=== PATIENT | female | born 1930 | race Caucasian/White ===

== ENCOUNTER 2018-03-19 18:24 | Emergency (ER) | payer MEDICARE ==
[2018-03-19 19:26] LABS: ABS Basophils 0 10^3/ul (0-0.2); ABS Eosinophils 0.1 10^3/ul (0-0.6); ABS Lymphocytes 1.3 10^3/ul (1.0-4.8); ABS Monocytes 1.1 10^3/ul (0-0.8); ABS Neutrophils 3.4 10^3/ul (1.5-7.7); ABS Nucleated RBC 0 10^3/ul; Eosinophil % 2.4 % (0-6); Hematocrit 40 % (35-47); Mean Corpuscular HGB Conc 35 g/dl (31-36); Mean Corpuscular Hemoglobin 33 pg (27-31); Mean Corpuscular Volume 95 fL (80-97); Mean Platelet Volume 8.3 um3 (7.4-10.4); Nucleated Red Blood Cells % 0.1; Platelet Count 273 10^3/ul (150-450); Red Blood Count 4.23 10^6/ul (4.00-5.40); Red Cell Distribution Width 12 % (10.5-15); White Blood Count 5.9 10^3/ul (3.5-10.8)
--- NOTE | 2018-03-19 19:36 | ED ---
HPI Chest Pain - HPI Summary HPI Summary: This is scribherbert Burdick documenting for attending Sandro Owens MD. Patient is a 86 y/o F w/ c/o retrospinal chest pain and dysuria. Chest pain is reported to have onset yesterday in the afternoon. Patient also notes dysuria onsetting six days ago. She was diagnosed with C-diff at this time (six days ago ) as well. In the room, chest pain is rated 8/10. The patient states chest pain "feels like someone hit me" but not reported to radiate. Deep breaths aggravate pain and nothing else is noted to aggravate/alleviate Sx on triage. N/V, fever are denied. Diarrhea Sx are reported to be improving since C-diff Dx. Home medications and allergies are reviewed. - History of Current Complaint Chief Complaint: EDChestWallPain Time Seen by Provider: 03/19/18 19:09 Hx Obtained From: Patient Onset/Duration: Started Days Ago - chest pain onset yesterday, dysuria onset 6 days ago Timing: Constant Current Severity: Severe - rated 8/10 in the room Pain Intensity: 8 Pain Scale Used: 0-10 Numeric - 8/10 Chest Pain Location: Discrete at: - retrosternal area Chest Pain Radiates: No Character: Other: - "feels like someone hit me" Aggravating Factor(s): Deep Breaths Alleviating Factor(s): Nothing Associated Signs and Symptoms: Positive: Chest Pain, Other: - POSITIVE: dysuria ; diarrhea (Sx are getting better). Negative: Fever, Nausea, Vomiting - Allergy/Home Medications Allergies/Adverse Reactions: Allergies Allergy/AdvReac Type Severity Reaction Status Date / Time aspirin Allergy Bleeding Verified 03/19/18 18:48 codeine Allergy Unknown Verified 03/19/18 18:48 Reaction Details Home Medications: Home Medications metroNIDAZOLE [Metronidazole] 500 mg PO Q8H 03/19/18 [History Confirmed 03/19/18 ] PMH/Surg Hx/FS Hx/Imm Hx Cardiovascular History: Reports: Hx Hypertension Sensory History: Denies: Hx Legally Blind - Surgical History Surgery Procedure, Year, and Place: Hysterectomy. R wrist surgery. rotor cuff surger Infectious Disease History: No Infectious Disease History: Denies: History Other Infectious Disease, Traveled Outside the [place] in Last 30 Days - Family History Known Family History: Negative: Blood Disorder - Social History Alcohol Use: Rare Substance Use Type: Reports: None Smoking Status (MU): Former Smoker Review of Systems Negative: Fever Positive: Chest Pain Positive: Diarrhea - reported to be getting better since last week . Negative: Vomiting, Nausea Positive: dysuria All Other Systems Reviewed And Are Negative: Yes Physical Exam - Summary Physical Exam Summary: VITAL SIGNS: Reviewed. GENERAL: Patient is a well-developed and nourished female who is lying comfortable in the stretcher. Patient is not in any acute respiratory distress. HEAD AND FACE: No signs of trauma. No ecchymosis, hematomas or skull depressions. No sinus tenderness. EYES: PERRLA, EOMI x 2, No injected conjunctiva, no nystagmus. EARS: Hearing grossly intact. Ear canals and tympanic membranes are within normal limits. MOUTH: Oropharynx within normal limits. NECK: Supple, trachea is midline, no adenopathy, no JVD, no carotid bruit, no c- spine tenderness, neck with full ROM. CHEST: Symmetric, no tenderness at palpation; retrosternal chest pain, reproducible at palpation. LUNGS: Clear to auscultation bilaterally. No wheezing or crackles. CVS: Regular rate and rhythm, S1 and S2 present, no murmurs or gallops appreciated. ABDOMEN: Soft, non-tender. No signs of distention. No rebound no guarding, and no masses palpated. Bowel sounds are normal. EXTREMITIES: FROM in all major joints, no edema, no cyanosis or clubbing. NEURO: Alert and oriented x 3. No acute neurological deficits. Speech is normal and follows commands. SKIN: Dry and warm Triage Information Reviewed: Yes Vital Signs On Initial Exam: Initial Vitals Temp Pulse Resp BP Pulse Ox 97.9 F 81 16 164/107 98 03/19/18 18:30 03/19/18 18:30 03/19/18 18:30 03/19/18 18:30 03/19/18 18:30 Vital Signs Reviewed: Yes Diagnostics - Vital Signs Vital Signs Temp Pulse Resp BP Pulse Ox 03/19/18 18:51 83 35 155/83 96 03/19/18 18:50 80 29 97 03/19/18 18:30 97.9 F 81 16 164/107 98 - Laboratory Lab Results: Lab Results 03/19/18 Range/Units 19:17 WBC 5.9 (3.5-10.8) 10^3/ul RBC 4.23 (4.00-5.40) 10^6/ul Hgb 14.0 (12.0-16.0) g/dl Hct 40 (35-47) % MCV 95 (80-97) fL MCH 33 H (27-31) pg MCHC 35 (31-36) g/dl RDW 12 (10.5-15) % Plt Count 273 (150-450) 10^3/ul MPV 8.3 (7.4-10.4) um3 Neut % (Auto) 56.5 (38-83) % Lymph % (Auto) 22.0 L (25-47) % [place] % (Auto) 18.5 H (0-7) % Eos % (Auto) 2.4 (0-6) % Baso % (Auto) 0.6 (0-2) % Absolute Neuts (auto) 3.4 (1.5-7.7) 10^3/ul Absolute Lymphs (auto) 1.3 (1.0-4.8) 10^3/ul Absolute Monos (auto) 1.1 H (0-0.8) 10^3/ul Absolute Eos (auto) 0.1 (0-0.6) 10^3/ul Absolute Basos (auto) 0 (0-0.2) 10^3/ul Absolute Nucleated RBC 0 10^3/ul Nucleated RBC % 0.1 Result Diagrams: 03/19/18 19:17 03/19/18 19:17 Lab Statement: Any lab studies that have been ordered have been reviewed, and results considered in the medical decision making process. - Radiology CXR Xray Interpretation: No Acute Changes Radiology Interpretation Completed By: Radiologist - No active cardiopulmonary disease is noted. This report was reviewed by ED physician. - EKG 1940 Cardiac Rate: NL - Rate of 82 BPM EKG Rhythm: Sinus Rhythm ST Segment: Normal - No ST elevation EKG Interpretation: Q wave in 2, 3, aVF Chest Pain Course/Dx - Course Assessment/Plan: Blood test results without any significant abnormality except for sodium 127, glucose 101, magnesium 1.7 for which the patient was given magnesium by mouth. Troponin #1 is 0.00 and troponin #2 is also 0.00. Therefore I have no suspicion for an acute coronary syndrome and since the patient is not tachycardic or hypoxic I have no suspicion for PE. The patient is awaiting for the results of the urinalysis since the patient is complaining of dysuria and urinary frequency. The patient will be signed out to Dr. Hernandez at shift change. He will follow-up the urinalysis results if needed he will place the patient antibiotics. At this point the patient is hemodynamically stable alert and oriented 3. - Chest Pain Differential Diagnosis/HQI/PQRI: Acute RI, ACS, Angina, CHF, Chest Wall, GI Disease, Lower Respiratory Infection - Diagnoses Provider Diagnoses: Atypical chest pain, UTI (urinary tract infection) Discharge - Sign-Out/Discharge Documenting (check all that apply): Sign-Out Patient Signing out patient TO: Dada Hernandez Receiving patient FROM: Sandro Owens - Discharge Plan Condition: Stable Disposition: HOME Prescriptions: Sulfamethox/Trimethoprim DS* [Bactrim DS 800/160 TAB*] 1 tab PO BID #6 tab Patient Education Materials: Chest Pain (ED), Urinary Tract Infection in Women (ED) Referrals: Andrez Cloud MD [Primary Care Provider] - 4 Days (PLEASE F/U IN 3-5 DAYS) Additional Instructions: RETURN TO THE ED FOR CHANGING/RETURNING SYMPTOMS - Billing Disposition and Condition Condition: STABLE Disposition: Home
--- NOTE | 2018-03-19 19:37 | RAD ---
Indication: Chest pain. Single frontal view of the chest performed at 1918 hours was reviewed. Comparison is made with previous exam dated May 25, 2015. No mediastinal shift is noted. Heart is of normal size and configuration. Lung gibson appear clear. IMPRESSION: NO ACTIVE CARDIOPULMONARY DISEASE IS NOTED.
[2018-03-19 19:45] LABS: EGFR Non-African American 80.7 (>60)
[2018-03-19] MEDS ORDERED: Ketorolac INJ* 30 MG/ML 1 ML VIAL IV PUSH ONE (19:58)
[2018-03-19] MEDS ORDERED: Acetaminophen TAB* 325 MG PO ONE (19:58)
[2018-03-19] MEDS ORDERED: NS 0.9% 1000 ML* 1,000 ML IV ONE (21:18)
[2018-03-19] MEDS ORDERED: Magnesium Oxide TAB* 400 MG PO ONE (21:18)
--- NOTE | 2018-03-19 21:31 | ED ---
Progress - Progress Note Progress Note: Pt signed out by Dr. Owens pending 2nd Troponin and UA. - Results/Orders Results/Orders: Repeat Troponin 0.00. UA (+) UTI. Re-Evaluation - Re-Evaluation 1 Re-Evaluation Time: 22:52 Comment: discussed plan to d/c and reviewed test results Course/Dx - Course Course Of Treatment: Bloodwork obtained. Signed out from Dr. Owens. UA (+) UTI. Repeat trop 0.00. Pt will be d/c home with f/u with PCP. - Diagnoses Provider Diagnoses: Atypical chest pain, UTI (urinary tract infection) Discharge - Sign-Out/Discharge Documenting (check all that apply): Patient Departure - Discharge Plan Condition: Stable Disposition: HOME Prescriptions: Sulfamethox/Trimethoprim DS* [Bactrim DS 800/160 TAB*] 1 tab PO BID #6 tab Patient Education Materials: Chest Pain (ED), Urinary Tract Infection in Women (ED) Referrals: Andrez Cloud MD [Primary Care Provider] - 4 Days (PLEASE F/U IN 3-5 DAYS) Additional Instructions: RETURN TO THE ED FOR CHANGING/RETURNING SYMPTOMS - Billing Disposition and Condition Condition: STABLE Disposition: Home
[2018-03-19 22:27] VITALS: BP 105/74
[2018-03-19 22:41] LABS: Urine Appearance Cloudy; Urine Blood 1+ (Negative); Urine Color Yellow; Urine Ketones Negative (Negative); Urine Protein Negative (Negative); Urine Red Blood Cell 2+(6-10/hpf) (Absent); Urine Specific Gravity 1.008 (1.010-1.030); Urine Urobilinogen Negative (Negative); Urine White Blood Cell 3+(>20/hpf) (Absent)
[2018-03-19] MEDS ORDERED: Sulfamethox/Trimethoprim DS 800/160* TAB PO ONE (22:46)
[2018-03-19] MEDS ORDERED: Sulfamethox/Trimethoprim DS 800/160* TAB ONE (22:49)
--- NOTE | 2018-03-21 06:54 | PN ---
Progress Note - Progress Note Date of Service: 03/21/18 Note: urine culture grew e coi >100,000. patient placed on bactrim. will wait for final culture for sensitivity.
== END 2018-03-19 23:06 | disposition home or self-care (01) ==
LOC: ED 18:24
DX: R07.89 Other chest pain (principal); N39.0 Urinary tract infection, site not specified; B96.20 Unspecified Escherichia coli [E. coli] as the cause of diseases classified elsewhere; R19.7 Diarrhea, unspecified; Z88.6 Allergy status to analgesic agent; Z88.5 Allergy status to narcotic agent; Z87.891 Personal history of nicotine dependence
CPT/HCPCS: 36415; 71045; 80053; 81003; 81015; 82550; 83605; 83735; 83880; 84443; 84484; 85025; 87077; 87086; 87186; 93005; 96374; 99284; A9270-GY; J1885

== ENCOUNTER 2018-03-25 09:20 | Emergency (ER) | payer MEDICARE ==
[2018-03-25] MEDS ORDERED: NS 0.9% 1000 ML* 1,000 ML IV ONE ×2 (09:43→10:24)
[2018-03-25] MEDS ORDERED: Vancomycin(*) 1,500 MG in NS 0.9% 250 ML* 250 ML IVPB ONE (09:50)
[2018-03-25 10:01] LABS: Hematocrit 41 % (35-47); Hemoglobin 14.1 g/dl (12.0-16.0); Mean Corpuscular HGB Conc 35 g/dl (31-36); Mean Corpuscular Hemoglobin 33 pg (27-31); Mean Corpuscular Volume 96 fL (80-97); Mean Platelet Volume 8.2 um3 (7.4-10.4); Platelet Count 285 10^3/ul (150-450); Red Blood Count 4.26 10^6/ul (4.00-5.40); Red Cell Distribution Width 12 % (10.5-15); White Blood Count 3.3 10^3/ul (3.5-10.8)
[2018-03-25 10:04] LABS: ABS Basophils 0 10^3/ul (0-0.2); ABS Eosinophils 0.1 10^3/ul (0-0.6); ABS Lymphocytes 0.9 10^3/ul (1.0-4.8); ABS Monocytes 0.6 10^3/ul (0-0.8); ABS Neutrophils 1.7 10^3/ul (1.5-7.7); ABS Nucleated RBC 0 10^3/ul; Eosinophil % 2.1 % (0-6); Lymphocyte % 27.5 % (25-47); Nucleated Red Blood Cells % 0.1
[2018-03-25 10:18] LABS: EGFR Non-African American 72.2 (>60)
[2018-03-25] MEDS ORDERED: NS 0.9% 250 ML* 250 ML ONE (10:35)
--- NOTE | 2018-03-25 11:07 | ED ---
Nausea/Vomiting/Diarrhea HPI - HPI Summary HPI Summary: Patient is a 7-year-old female with a recent history of C diff and UTI and has been taking metronidazole and Bactrim. She states she continues to have worsening diarrhea which is not clearing up with the metronidazole. She endorses significant improvement in her UTI symptoms and denies any urinary complaints. She endorses watery stool 10X + daily. She states she has been feeling otherwise well, denies any chest pain or shortness of breath. Denies any fevers, sweats, chills. Endorses lower abdominal pain bilaterally which is been present since the diarrhea began 2 weeks ago. - History of Current Complaint Chief Complaint: EDWeakness Stated Complaint: WEAKNESS/GEN ILLNESS Time Seen by Provider: 03/25/18 09:30 Hx Obtained From: Patient ?: No Onset/Duration: Sudden Onset Timing: Constant Severity Initially: Mild Severity Currently: Mild Pain Intensity: 8 Pain Scale Used: 0-10 Numeric Location: Diffuse Character: Cramping Aggravating Factor(s): Nothing Alleviating Factor(s): Nothing Nausea/Vomiting Presence: None Diarrhea Frequency: Every 1-2 hours Diarrhea Duration: > 7 days Diarrhea Characteristics: Watery - Risk Factors Influenza Risk Factors: Negative Surgical Obstruction Risk Factor(s): Negative - Allergies/Home Medications Allergies/Adverse Reactions: Allergies Allergy/AdvReac Type Severity Reaction Status Date / Time aspirin Allergy Bleeding Verified 03/25/18 10:07 codeine Allergy Unknown Verified 03/25/18 10:07 Reaction Details PMH/Surg Hx/FS Hx/Imm Hx Previously Healthy: Yes Cardiovascular History: Reports: Hx Hypertension Sensory History: Denies: Hx Legally Blind Opthamlomology History: Denies: Hx Legally Blind - Surgical History Surgery Procedure, Year, and Place: Hysterectomy. R wrist surgery. rotor cuff surger - Immunization History Hx Pertussis Vaccination: No Immunizations Up to Date: Unable to Obtain/Confirm Infectious Disease History: Yes Infectious Disease History: Denies: History Other Infectious Disease, Traveled Outside the [place] in Last 30 Days - Family History Known Family History: Negative: Blood Disorder - Social History Occupation: Unemployed Lives: With Family Alcohol Use: Rare Hx Substance Use: No Substance Use Type: Reports: None Hx Tobacco Use: Yes Smoking Status (MU): Former Smoker Review of Systems Constitutional: Negative Negative: Fever, Chills, Fatigue, Skin Diaphoresis Negative: Palpitations, Chest Pain Negative: Shortness Of Breath, Cough Positive: Abdominal Pain, Diarrhea. Negative: Vomiting, Nausea Genitourinary: Negative Positive: no symptoms reported, see HPI Negative: Arthralgia, Myalgia Skin: Negative All Other Systems Reviewed And Are Negative: Yes Physical Exam Triage Information Reviewed: Yes Vital Signs On Initial Exam: Initial Vitals Temp Pulse Resp BP Pulse Ox 98 F 69 17 162/86 95 03/25/18 09:38 03/25/18 09:38 03/25/18 09:38 03/25/18 09:38 03/25/18 09:38 Vital Signs Reviewed: Yes Appearance: Positive: Well-Appearing, Well-Nourished Skin: Positive: Dry Head/Face: Positive: Normal Head/Face Inspection Neck: Positive: Supple, No Lymphadenopathy Respiratory/Lung Sounds: Positive: Clear to Auscultation, Breath Sounds Present Cardiovascular: Positive: RRR, Pulses are Symmetrical in both Upper and Lower Extremities Musculoskeletal: Positive: Normal, Strength/ROM Intact Neurological: Positive: Speech Normal Psychiatric: Positive: Normal, Affect/Mood Appropriate AVPU Assessment: Alert Diagnostics - Vital Signs Vital Signs Temp Pulse Resp BP Pulse Ox 03/25/18 10:24 71 19 123/74 95 03/25/18 10:00 71 18 94 03/25/18 09:54 71 17 162/86 94 03/25/18 09:53 14 03/25/18 09:38 98 F 69 17 162/86 95 - Laboratory Lab Results: Lab Results 03/25/18 03/25/18 03/25/18 Range/Units 09:52 09:52 09:52 WBC 3.3 L (3.5-10.8) 10^3/ul RBC 4.26 (4.00-5.40) 10^6/ul Hgb 14.1 (12.0-16.0) g/dl Hct 41 (35-47) % MCV 96 (80-97) fL MCH 33 H (27-31) pg MCHC 35 (31-36) g/dl RDW 12 (10.5-15) % Plt Count 285 (150-450) 10^3/ul MPV 8.2 (7.4-10.4) um3 Neut % (Auto) 51.6 (38-83) % Lymph % (Auto) 27.5 (25-47) % [place] % (Auto) 17.7 H (0-7) % Eos % (Auto) 2.1 (0-6) % Baso % (Auto) 1.1 (0-2) % Absolute Neuts (auto) 1.7 (1.5-7.7) 10^3/ul Absolute Lymphs (auto) 0.9 L (1.0-4.8) 10^3/ul Absolute Monos (auto) 0.6 (0-0.8) 10^3/ul Absolute Eos (auto) 0.1 (0-0.6) 10^3/ul Absolute Basos (auto) 0 (0-0.2) 10^3/ul Absolute Nucleated RBC 0 10^3/ul Nucleated RBC % 0.1 Sodium 127 L (135-145) mmol/L Potassium 4.5 (3.5-5.0) mmol/L Chloride 95 L (101-111) mmol/L Carbon Dioxide 25 (22-32) mmol/L Anion Gap 7 (2-11) mmol/L BUN 20 (6-24) mg/dL Creatinine 0.76 (0.51-0.95) mg/dL Est GFR ( Amer) 87.3 (>60) Est GFR (Non-Af Amer) 72.2 (>60) BUN/Creatinine Ratio 26.3 H (8-20) Glucose 98 (70-100) mg/dL Lactic Acid 0.8 (0.5-2.0) mmol/L Calcium 9.2 (8.6-10.3) mg/dL Magnesium 1.8 L (1.9-2.7) mg/dL Total Bilirubin 0.50 (0.2-1.0) mg/dL AST 18 (13-39) U/L ALT 12 (7-52) U/L Alkaline Phosphatase 78 (34-104) U/L C-Reactive Protein 4.51 (<8.01) mg/L Total Protein 6.7 (6.4-8.9) g/dL Albumin 3.9 (3.2-5.2) g/dL Globulin 2.8 (2-4) g/dL Albumin/Globulin Ratio 1.4 (1-3) Lipase 59 (11.0-82.0) U/L Result Diagrams: 03/25/18 09:52 03/25/18 09:52 Lab Statement: Any lab studies that have been ordered have been reviewed, and results considered in the medical decision making process. 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 She endorses a mild amount of weakness. Diarrhea present for 10 days, positive C. difficile continues despite Flagyl. Labs obtained and are WNL. Patient states she feels otherwise well. Has been on metronidazole 3 times daily 9 days, with 4 pills left. It was discussed with the patient to discontinue the rest of the metronidazole and begin vancomycin. She is unable to give a stool sample while in the ED, that based on frequency of watery stools with mucus yellow tinge, placing patient back on antibiotics his best course of treatment. Patient and family prefer to be discharged home as opposed to an admission as patient has good support system. She will follow-up with her PCP next week. She is encouraged rehydration. - Differential Dx/Diagnosis Differential Diagnoses - Female: Enterocolitis Provider Diagnoses: Clostridium difficile Condition At Discharge: Stable Discharge - Sign-Out/Discharge Documenting (check all that apply): Patient Departure - Discharge Plan Condition: Stable Disposition: HOME Prescriptions: Vancomycin CAP* 125 mg PO QID #40 cap Patient Education Materials: C Diff (Clostridium Difficile) Infection (ED) Referrals: Andrez Cloud MD [Primary Care Provider] - Additional Instructions: Vancomycin 4 times daily 10 days Please follow-up with Elisabeth next week Drink plenty of fluid If you feel you aren't not getting enough fluid, drink Gatorade or tomato/V8 juice Do not take any antidiarrheal medications If you develop any fevers or return to the ED - Billing Disposition and Condition Condition: STABLE Disposition: Home
[2018-03-25 14:27] VITALS: BP 169/86
== END 2018-03-25 14:29 | disposition home or self-care (01) ==
LOC: ED 09:20
DX: A04.72 Enterocolitis due to Clostridium difficile, not specified as recurrent (principal); R10.30 Lower abdominal pain, unspecified; R19.7 Diarrhea, unspecified; Z87.891 Personal history of nicotine dependence
CPT/HCPCS: 36415; 80053; 83605; 83690; 83735; 85025; 86140; 96365; 99283; J3370